=== PATIENT | female | born 1995 | race Two or more races ===

== ENCOUNTER 2021-07-24 18:01 | Emergency (ER) | payer OTHER ==
[~2021-07-24] VITALS: Ht 160 cm; Wt 59.4 kg
[2021-07-24] MEDS ORDERED: PRENATAL + DHA1 EAC1 (18:36)
[2021-07-24] MEDS ORDERED: LEVOTHYROXINE25 MCG PO (18:36)
[2021-07-24] MEDS ORDERED: DUI500 PO (19:58)
== END 2021-07-24 20:34 | disposition home or self-care (01) ==
LOC: ER 18:01
DX: O26.892 Other specified pregnancy related conditions, second trimester (principal); R09.81 Nasal congestion; R51.9 Headache, unspecified; Z3A.19 19 weeks gestation of pregnancy

== ENCOUNTER → 2021-09-04 | Outpatient (CLI) | payer OTHER ==
[~2021-09-04] MED LIST: DUI500 PO; LEVOTHYROXINE25 MCG PO; PRENATAL + DHA1 EAC1
== END | disposition home or self-care (01) ==
LOC: OBS/DEL 20:03
PROVIDERS: ATTEND Specialist
DX: O26.892 Other specified pregnancy related conditions, second trimester (principal); R10.2 Pelvic and perineal pain; Z3A.34 34 weeks gestation of pregnancy

== ENCOUNTER 2021-09-08 00:26 | Outpatient (CLI) | payer OTHER | END 2021-09-08 10:48 | disposition home or self-care (01) | LOC: OBS/DEL 00:26 | PROVIDERS: ATTEND Specialist | DX: O36.8120 Decreased fetal movements, second trimester, not applicable or unspecified (principal); Z3A.26 26 weeks gestation of pregnancy ==

== ENCOUNTER 2021-09-28 17:45 | Outpatient (CLI) | payer OTHER | END 2021-09-29 12:16 | disposition home or self-care (01) | LOC: OBS/DEL 17:45 | PROVIDERS: ATTEND Specialist | DX: O26.893 Other specified pregnancy related conditions, third trimester (principal); R10.2 Pelvic and perineal pain; Z3A.29 29 weeks gestation of pregnancy ==

== ENCOUNTER 2021-12-05 12:00 | Inpatient (IN) | payer OTHER ==
[~2021-12-05] VITALS: Ht 160 cm; Wt 67.1 kg
[2021-12-05] MEDS ORDERED: PRENA1 TRUE CO1 EACH PO (21:38)
[2021-12-12] MEDS ORDERED: PROGESTERONE200 MG (11:27)
[2021-12-15] MEDS ORDERED: FERROUS SULFAT325 MG PO (07:43)
== END 2021-12-15 14:34 | disposition home or self-care (01) | DRG 788 ==
LOC: EDBD 12-11 12:00 → OB/GYN 12-11 12:00 → LDR 12-12 06:23 → OB/GYN 12-12 06:23 → O/R 12-12 07:48 → OB/GYN 12-12 08:30 → EDBD 12-12 12:00 → OB/GYN 12-12 12:00
PROVIDERS: ADMIT Specialist; ATTEND Specialist
PROC: 4A1HXCZ Monitoring of Products of Conception, Cardiac Rate, External Approach (ICD-10-PCS; 2021-12-12)
PROC: 10D00Z1 Extraction of Products of Conception, Low, Open Approach (ICD-10-PCS; principal; 2021-12-12 08:30)
DX: O33.8 Maternal care for disproportion of other origin (principal); Z3A.40 40 weeks gestation of pregnancy; Z37.0 Single live birth; Z20.822 Contact with and (suspected) exposure to COVID-19

== ENCOUNTER 2021-12-05 21:04 | Emergency (ER) | payer OTHER ==
[~2021-12-05] VITALS: Ht 160 cm; Wt 65.8 kg
[2021-12-05] MEDS ORDERED: PRENA1 TRUE CO1 EACH PO (21:38)
== END 2021-12-05 23:36 | disposition home or self-care (01) ==
LOC: ER 21:04 → EDBD 21:07 → ER 21:07
DX: M62.838 Other muscle spasm (principal)

== ENCOUNTER 2021-12-07 10:10 | Emergency (ER) | payer OTHER ==
[~2021-12-07] VITALS: Ht 160 cm; Wt 65.8 kg
[~2021-12-07 10:10] MED LIST changes: +PRENA1 TRUE CO1 EACH PO
== END 2021-12-07 12:49 | disposition home or self-care (01) ==
LOC: ER 10:10 → EDBD 10:17 → ER 12:49
DX: O99.354 Diseases of the nervous system complicating childbirth (principal); Z3A.28 28 weeks gestation of pregnancy; Z37.0 Single live birth; G51.0 Bell's palsy

== ENCOUNTER 2022-01-09 00:11 | Emergency (ER) | payer OTHER ==
[~2022-01-09] VITALS: Ht 160 cm; Wt 54.9 kg
[~2022-01-09 00:11] MED LIST changes: +FERROUS SULFAT325 MG PO; +PROGESTERONE200 MG
[2022-01-09] MEDS ORDERED: LEVSIN/SL0.125 MG SL ×2 (06:53→06:54)
[2022-01-09] MEDS ORDERED: ONDANSETRON ODT4 MG PO ×2 (06:53→06:54)
[2022-01-20] MEDS ORDERED: CIPRO250 MG PO (08:35)
== END 2022-01-09 07:39 ==
LOC: ER 00:11
DX: K80.20 Calculus of gallbladder without cholecystitis without obstruction (principal); R10.13 Epigastric pain; Z88.6 Allergy status to analgesic agent

== ENCOUNTER 2022-01-25 23:31 | Inpatient (IN) | payer OTHER ==
[~2022-01-25] VITALS: Ht 160 cm; Wt 54.4 kg
[~2022-01-25 23:31] MED LIST changes: +CIPRO250 MG PO; +LEVSIN/SL0.125 MG SL; +MIRALAX510 GM PO; +ONDANSETRON ODT4 MG PO; +PEPCID20 MG PO; +PERCOCET 5-3251 EACH PO
--- NOTE | 2022-01-25 23:49 | NUR ---
SE RECIBE PACIENTE FEMENINA DE 24 ANOS DE EDAD DEPSIERTA Y ALERTA CON QUEJA PRINCIPAL DE DOLOR ABD. PACIENTE TRANSFERIDA DE [facility] POR PANCREATITIS
--- NOTE | 2022-01-26 00:48 | NUR ---
SE REALIZAN ORDENES MEDICAS EN [place] TOTALIDAD. SE ORIENTA SOBRE LOS MISMOS. SE MANTIENE PACIENTE EN OBSERVACION POR CAMBIOS SIGNIFICATIVOS DENTRO DE [place] CONDICION
--- NOTE | 2022-01-26 05:25 | NUR ---
SE REALIZA ADMINISTRACION DE MEDICAMNETOS POR ORDEN MEDICA. SE ORIENTA A PACIENTE SOBR EUSO Y EFECTOS DE LOS MEDICAMENTOS A SER ADMINISTRADOS.
--- NOTE | 2022-01-26 07:23 | NUR ---
PTE ALERETA ESTABLE Y ORIENTADA.SE EDUCA SOBRE EL SEGUIMIENTO QUE RECIBIRA EN EL HOSPITAL Y ESTA REFIERE ENTENDER.
[2022-01-27] MEDS ORDERED: FAMOTIDINE20 MG (08:14)
== END 2022-01-28 11:03 | disposition home or self-care (01) | DRG 440 ==
LOC: ER 23:31 → SURH 01-26 12:12
PROVIDERS: ADMIT Colon & Rectal Surgery; ATTEND Colon & Rectal Surgery
PROC: BW30ZZZ Magnetic Resonance Imaging (MRI) of Abdomen (ICD-10-PCS; principal; 2022-01-26)
DX: K85.80 Other acute pancreatitis without necrosis or infection (principal); E86.0 Dehydration; E03.8 Other specified hypothyroidism; Z20.822 Contact with and (suspected) exposure to COVID-19